=== PATIENT | male | born 2000 | race Caucasian/White ===

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

== ENCOUNTER 2018-08-22 15:26 | Emergency (ER) | payer MEDICAID ==
[~2018-08-22] VITALS: Ht 175.3 cm; Wt 130.4 kg
[~2018-08-22 15:26] MED LIST: MAGICMW MT
[2018-08-22 15:27] VITALS: BP 154/71
[2018-08-22] MEDS ORDERED: NORCO, ANEXSIA 5/325MG TABLET (HYDROcodone/ACETAMINOPHEN) PO ONE (16:45)
[2018-08-22] MEDS ORDERED: NAPROXEN 250 MG TAB PO ONE (16:45)
[2018-08-22] MEDS ORDERED: ADACEL/BOOSTRIX VACCINE (DIPHTH/PERTUSS/ACELL/TETANUS)0.5ML SYR (90715) IM ONE (16:45)
--- NOTE | 2018-08-22 17:00 | REP ---
Right index finger four views: There is soft tissue injury at the distal tip. There is no fracture, particularly at the distal tuft. No dislocation. No calcification of foreign body. Impression: Distal tuft soft tissue injury. No fracture or dislocation. Electronically Signed by Irvin Alvares MD 08/22/2018 04:51 P
[2018-08-22] MEDS ORDERED: KEFL500C17 PO (17:36)
== END 2018-08-22 17:48 | disposition home or self-care (01) ==
LOC: M ED 15:26
DX: S61.210A Laceration without foreign body of right index finger without damage to nail, initial encounter (principal); W26.8XXA Contact with other sharp object(s), not elsewhere classified, initial encounter; Y92.099 Unspecified place in other non-institutional residence as the place of occurrence of the external cause; Y93.89 Activity, other specified; Y99.9 Unspecified external cause status; Z88.8 Allergy status to other drugs, medicaments and biological substances

== ENCOUNTER 2019-11-21 18:25 | Emergency (ER) | payer MEDICAID ==
[~2019-11-21] VITALS: Ht 162.6 cm; Wt 119.5 kg
[~2019-11-21 18:25] MED LIST changes: +KEFL500C17 PO
--- NOTE | 2019-11-21 19:32 | REP ---
Four views right hand: 11/21/2019. Indication: Right hand trauma. Comparison: 08/22/2018. Findings: There is no acute fracture, subluxation or dislocation. No lytic or blastic lesions are present. Impression: No acute osseous right hand injury. Electronically Signed by Nicolas Peraza DO 11/21/2019 07:24 P
[2019-11-21 20:08] VITALS: BP 128/97
== END 2019-11-21 20:15 | disposition home or self-care (01) ==
LOC: M ED 18:25
DX: S60.221A Contusion of right hand, initial encounter (principal); W22.8XXA Striking against or struck by other objects, initial encounter; Y92.099 Unspecified place in other non-institutional residence as the place of occurrence of the external cause; Y93.89 Activity, other specified; Y99.9 Unspecified external cause status; Z88.8 Allergy status to other drugs, medicaments and biological substances

== ENCOUNTER → 2020-07-17 | Outpatient (REF) | payer MEDICAID ==
[2020-07-17 17:27] LABS: BASO % 0.6 % (0.0-1.0); EOS # 0.2 10^3/uL (0.0-0.5); EOS % 3.2 % (0.0-3.0); HEMATOCRIT 49.3 % (42.0-52.0); HEMOGLOBIN 16.6 g/dl (13.5-17.5); LYMPH # 2.7 10^3/uL (1.5-5.0); LYMPH % 37.3 % (24.0-44.0); MEAN CORPUSCULAR HEMOGLOBIN 29.3 pg (27.0-33.0); MEAN CORPUSCULAR HGB CONC 33.7 g/dl (32.0-36.5); MEAN CORPUSCULAR VOLUME 87.1 fl (80.0-96.0); MONO # 0.7 10^3/uL (0.0-0.8); MONO % 9.6 % (2.0-8.0); NEUTROPHILS # 3.6 10^3/uL (1.5-8.5); NEUTROPHILS % 48.9 % (36.0-66.0); PLATELET COUNT, AUTOMATED 232 10^3/uL (150-450); RED BLOOD COUNT 5.66 10^6/uL (4.30-6.10); WHITE BLOOD COUNT 7.3 10^3/uL (4.0-10.0)
[2020-07-17 17:51] LABS: HEMOGLOBIN A1c 5.1 %
[2020-07-17 18:00] LABS: ALBUMIN 4.2 GM/DL (3.2-5.2); ALT/SGPT 51 U/L (12-78); BILIRUBIN,TOTAL 0.6 MG/DL (0.2-1.0); BLOOD UREA NITROGEN 11 MG/DL (7-18); CALCIUM LEVEL 9.4 MG/DL (8.5-10.1); CARBON DIOXIDE LEVEL 27 MEQ/L (21-32); CHLORIDE LEVEL 108 MEQ/L (98-107); CHOLESTEROL LEVEL 179 MG/DL (<200); CHOLESTEROL RISK RATIO 5.593 (<5); CREATININE FOR GFR 1.14 MG/DL (0.70-1.30); FREE T4 0.98 NG/DL (0.76-1.46); GLOMERULAR FILTRATION RATE > 60.0 (>60); GLUCOSE, FASTING 89 MG/DL (70-100); HDL CHOLESTEROL 32 MG/DL (>40); LDL CHOLESTEROL 115 MG/DL (<100); NON-HDL-C 147 MG/DL; POTASSIUM SERUM 4.2 MEQ/L (3.5-5.1); SODIUM LEVEL 140 MEQ/L (136-145); TOTAL PROTEIN 7.8 GM/DL (6.4-8.2); TRIGLYCERIDES LEVEL 158 MG/DL (<150)
[2020-07-17 18:03] LABS: TOTAL 25(OH) VITAMIN D 22.4 NG/ML (30.0-100.0)
[2020-07-20 07:06] LABS: PSA TOTAL 0.3 ng/mL (0.0-4.0)
== END ==
LOC: M LAB REF 16:29
PROVIDERS: ATTEND Nurse Practitioner Family
DX: Z13.29 Encounter for screening for other suspected endocrine disorder (principal); E66.9 Obesity, unspecified; Z13.228 Encounter for screening for other metabolic disorders

== ENCOUNTER 2022-09-10 10:15 | Emergency (ER) | payer MEDICAID ==
[~2022-09-10] VITALS: Ht 162.6 cm; Wt 114.1 kg
[2022-09-10] MEDS ORDERED: IBUPROFEN 600MG TAB PO ONE (11:15)
[2022-09-10 11:29] VITALS: BP 131/68
== END 2022-09-10 11:39 | disposition home or self-care (01) ==
LOC: M ED 10:15
DX: S43.402A Unspecified sprain of left shoulder joint, initial encounter (principal); X58.XXXA Exposure to other specified factors, initial encounter; Y92.89 Other specified places as the place of occurrence of the external cause; Y93.89 Activity, other specified; Y99.8 Other external cause status; F31.9 Bipolar disorder, unspecified; Z88.8 Allergy status to other drugs, medicaments and biological substances

== ENCOUNTER → 2024-01-05 | Outpatient (REF) | payer MEDICAID, OTHER ==
[2024-01-05 17:14] LABS: CHOLESTEROL RISK RATIO 6.4 (<5); HDL CHOLESTEROL 26.7 MG/DL (>40); LDL CHOLESTEROL 103.1 MG/DL (<100); NON-HDL-C 144.3 MG/DL
[2024-01-05 17:16] LABS: THYROID STIMULATING HORMONE 2.48 uIU/ML (0.55-4.78)
== END ==
LOC: M LAB REF 16:23
PROVIDERS: ATTEND Nurse Practitioner Family
DX: E66.9 Obesity, unspecified (principal); Z68.42 Body mass index [BMI] 45.0-49.9, adult

== ENCOUNTER → 2024-01-20 | Outpatient (CLI) | payer OTHER | LOC: M SLEEP HO 11:49 | PROVIDERS: ATTEND Nurse Practitioner Family | DX: G47.33 Obstructive sleep apnea (adult) (pediatric) (principal); R53.83 Other fatigue ==